=== PATIENT | male | born 1975 | race Caucasian/White ===

== ENCOUNTER 2022-12-16 12:21 | Inpatient (IN) | payer OTHER ==
[2022-12-18] MEDS ORDERED: Ondansetron 4 MG Tab.DIS PO PRN (13:03)
[2022-12-18] MEDS ORDERED: Acetaminophen 325 MG Tab PO PRN (13:03)
[2022-12-18] MEDS ORDERED: Sodium Chloride 0.9% 10 ML Syringe FLUSH PRN (13:03)
[2022-12-18] MEDS ORDERED: Sodium Chloride 0.9% 1,000 ML IV ONE (13:06)
[2022-12-18] MEDS: Sodium Chloride 0.9% 1,000 ML IV ONE (15:20)
[2022-12-18] MEDS ORDERED: METRONIDAZOLE TOP PRN (16:16)
[2022-12-18] MEDS: Sodium Chloride 0.9% 1,000 ML IV SCH ×2 (16:24→21:26)
[2022-12-18 16:45] LABS: ANION GAP 20.7 mmol/L (5-15)
[2022-12-18] MEDS: atorvaSTATin 40 MG Tab PO SCH (20:45)
[2022-12-19] MEDS: Sodium Chloride 0.9% 1,000 ML IV SCH ×3 (02:19→17:40)
[2022-12-19 07:28] LABS: ANION GAP 19.1 mmol/L (5-15)
[2022-12-19] MEDS: Sodium Chloride 0.9% 1,000 ML IV ONE (07:30)
[2022-12-19] MEDS ORDERED: Sodium Chloride 0.9% 1,000 ML IV ONE (08:37)
[2022-12-19] MEDS: Omeprazole 20 MG Cap.CR PO SCH (09:14)
[2022-12-19] MEDS: Aspirin 81 MG Tab.EC PO SCH (09:14)
[2022-12-19] MEDS: Metoprolol Succinate 50 MG Tab.ER PO SCH (09:15)
[2022-12-19] MEDS: Ferrous Sulfate 325 MG Tab PO SCH (09:17)
[2022-12-19] MEDS: Fenofibrate,Micronized 134 MG Cap PO SCH (09:18)
[2022-12-19] MEDS: glipiZIDE 10 MG Tab.ER PO SCH (09:18)
[2022-12-19] MEDS: Calcium Carbonate/Vitamin D3 1250 MG-5 MCG Tab PO SCH (09:18)
[2022-12-19 15:36] LABS: ANION GAP 16.7 mmol/L (5-15)
[2022-12-19] MEDS ORDERED: Sodium Chloride 0.9% 1,000 ML IV SCH (17:56)
[2022-12-19] MEDS: atorvaSTATin 40 MG Tab PO SCH (20:40)
[2022-12-20 07:07] LABS: ANION GAP 16.8 mmol/L (5-15)
[2022-12-20] MEDS: glipiZIDE 10 MG Tab.ER PO SCH (09:09)
[2022-12-20] MEDS: Aspirin 81 MG Tab.EC PO SCH (09:10)
[2022-12-20] MEDS: Fenofibrate,Micronized 134 MG Cap PO SCH (09:10)
[2022-12-20] MEDS: Calcium Carbonate/Vitamin D3 1250 MG-5 MCG Tab PO SCH (09:11)
[2022-12-20] MEDS: Metoprolol Succinate 50 MG Tab.ER PO SCH (09:11)
[2022-12-20] MEDS: Ferrous Sulfate 325 MG Tab PO SCH (09:16)
[2022-12-20] MEDS: Omeprazole 20 MG Cap.CR PO SCH (09:17)
== END 2022-12-20 10:25 | disposition home or self-care (01) | DRG 682 ==
LOC: VM.MS 12:21
PROVIDERS: ADMIT Family Medicine; ATTEND Family Medicine
DX: N17.9 Acute kidney failure, unspecified (principal); U07.1 COVID-19; E87.1 Hypo-osmolality and hyponatremia; Z68.41 Body mass index [BMI] 40.0-44.9, adult; E66.01 Morbid (severe) obesity due to excess calories; Z87.891 Personal history of nicotine dependence; I10 Essential (primary) hypertension; E78.5 Hyperlipidemia, unspecified; E11.9 Type 2 diabetes mellitus without complications
CPT/HCPCS: 36415; 80048; 80053; A9270-GY; J3490; J7030